=== PATIENT | male | born 1955 | race Caucasian/White ===

== ENCOUNTER → 2018-06-02 | Outpatient (CLI) | payer BC ==
--- NOTE | 2018-06-02 10:19 | RAD ---
Single frontal view pelvis Indication: PAIN IN BILAT HIP Comparison: None. Impression: L5-S1 fusion construct noted. No acute pelvic fracture identified. Evaluation for fracture is limited given the degree of osteopenia. If high clinical concern for acute fracture, correlation with MRI recommended given its greater sensitivity in the osteopenic patient. If the patient cannot tolerate MRI imaging or more urgent imaging is required, CT could be performed, however it is less sensitive in the osteopenic patient when compared to MRI. Mild bilateral hip osteoarthritis with joint space narrowing and minimal acetabular roof osteophyte formation. Electronically signed by: Pedro Woods MD 06/02/2018 10:18 AM [facility]
--- NOTE | 2018-06-02 10:20 | RAD ---
4 view left knee Indication: PAIN IN LEFT KNEE Comparison: None. Impression: Severe narrowing medial and patellofemoral compartments with near complete joint space loss and areas of cortical remodeling and subchondral sclerosis. Moderate narrowing lateral compartment. Moderate tricompartmental joint line osteophytes. Small knee effusion. No acute fracture. Electronically signed by: Pedro Woods MD 06/02/2018 10:18 AM [facility]
--- NOTE | 2018-06-02 10:21 | RAD ---
4 view right knee Indication: PAIN IN RIGHT KNEE Comparison: None. Impression: Impression: Severe narrowing medial and patellofemoral compartments with near complete joint space loss and areas of cortical remodeling and subchondral sclerosis. Moderate narrowing lateral compartment. Moderate tricompartmental joint line osteophytes. Small knee effusion. No acute fracture. Chondrocalcinosis of the menisci. Enthesophyte formation quadriceps tendon insertion. Electronically signed by: Pedro Woods MD 06/02/2018 10:20 AM [facility]
== END ==
LOC: RAD 09:22
PROVIDERS: ATTEND Orthopaedic Surgery
DX: M25.561 Pain in right knee (principal); M25.562 Pain in left knee; M16.0 Bilateral primary osteoarthritis of hip; M25.551 Pain in right hip; M25.552 Pain in left hip; Z98.1 Arthrodesis status

== ENCOUNTER → 2018-11-12 | Outpatient (CLI) | payer BC ==
--- NOTE | 2018-11-12 13:56 | RAD ---
EXAM DESCRIPTION: Chest,2 Views CLINICAL HISTORY: PRE OP COMPARISON: None TECHNIQUE: PA/lateral FINDINGS: There is no acute appearing cardiac or pulmonary abnormality. Heart size is prominent with normal pulmonary vascularity. No pleural effusion or pneumothorax. Lungs are clear with no consolidating infiltrate. Lateral view shows intact sternum and spurring in the mid to lower T-spine. IMPRESSION: No acute process is identified in the chest. Electronically signed by: Brian Martino MD 11/12/2018 1:54 PM CDT
== END ==
LOC: LAB.O 11:45
PROVIDERS: ATTEND Family Medicine
DX: Z01.818 Encounter for other preprocedural examination (principal)

== ENCOUNTER → 2019-02-09 | Outpatient (CLI) | payer BC | LOC: RESP 09:31 | PROVIDERS: ATTEND Orthopaedic Surgery | DX: Z01.818 Encounter for other preprocedural examination (principal) ==

== ENCOUNTER → 2019-02-25 | Day surgery (SDC) | payer BC ==
--- NOTE | 2019-01-02 09:41 | HP ---
CHIEF COMPLAINT: Right knee pain. HISTORY OF PRESENT ILLNESS: Mr. Mazariegos is a 63-year-old male with a history of severe knee pain. He has been scheduled to undergo total knee arthroplasty. He has pain now that seems to be at a level of about 10 at times. It is bilateral. He has difficulty with his daily activities because of the pain which is sharp in nature and prevents him from doing activities of daily living and pleasurable activities. Because of his failure of conservative measures, he has requested operative intervention. After discussing the risks, benefits and alternatives to that, he has given informed consent. PAST SURGICAL HISTORY: 1. Multiple back surgeries. 2. Nephrectomy. 3. Left knee arthroscopy. MEDICATIONS: 1. Amlodipine. 2. Hydrochlorothiazide. 3. Lisinopril. 4. Metoprolol. ALLERGIES: MORPHINE. CODE STATUS: Full code. IMMUNIZATIONS: Up to date. SOCIAL HISTORY: The patient does not drink, smoke or use any illicit drugs. FAMILY HISTORY: None pertinent to today's complaint. REVIEW OF SYSTEMS: Negative except as indicated in the History of Present Illness. PHYSICAL EXAMINATION: VITAL SIGNS: Blood pressure 133/81. Pulse 79. Height 6'. Weight 263 pounds. MENTAL STATUS: The patient is awake, alert, and is able to give a good history and participate in the physical. The patient is oriented to person, place and time. SKIN: Normal tone and turgor. HEENT: Normocephalic, atraumatic. Pupils equal, round and reactive. Mucosal membranes are moist. NECK: Normal range of motion. No thyromegaly, no lymphadenopathy. CHEST: Normal respiratory excursion. CARDIAC: Regular rate and rhythm. No murmurs, rubs or gallops. MUSCULOSKELETAL: The bilateral upper extremities show full active range of motion. He has intact sensation. There is no pain with range of motion of the upper extremities. Both upper extremities are warm and well perfused. There is no deformity. There is no significant crepitus. The left lower extremity shows full range of motion of the hip without significant discomfort. He has severe pain in the knee with crepitus throughout his range of motion. He has slight varus deformity to the knee. He has full 5/5 strength. He lacks about 5 degrees of extension today and flexion is to about 120 degrees. The right side shows no significant pain with range of motion of the hip. Sensation is intact in the extremity and it is warm and well perfused. There is a slight varus deformity. The knee lacks about 5 degrees of extension with flexion to about 115 degrees. There is no varus/valgus or anterior/posterior laxity. IMAGING: X-rays show severe arthritis. ASSESSMENT: 1. Osteoarthritis. PLAN: The plan at this point is for total knee arthroplasty. We have discussed the risks, benefits, and alternatives to that and the patient has given informed consent. #[id number] [facility]
--- NOTE | 2019-02-17 08:04 | HP ---
CHIEF COMPLAINT: Right knee pain. HISTORY OF PRESENT ILLNESS: Mr. Mazariegos is a 64-year-old male with a history of pain in the right knee. He describes the pain as being throbbing in nature and up to an 8 in intensity. It has been going on for at least 3 years. It is on a continual basis and he cannot identify any alleviating factors. Aggravating factors include sitting, standing, walking and range of motion. Associated symptoms including clicking and popping. He has not had previous surgery on this. He has tried anti-inflammatories, physical therapy and injections, and these have failed to give him relief. Because of his ongoing symptoms and disruption of his daily activities, he has requested operative intervention. After discussing the risks, benefits and alternatives to that, he has given informed consent. PAST SURGICAL HISTORY: 1. Lumbar surgery. 2. Kidney surgery. 3. Left knee surgery. MEDICATIONS: 1. NovoLog. 2. Lisinopril. PAIN CONTRACT: None. ALLERGIES: NO KNOWN DRUG ALLERGIES. CODE STATUS: Full code. IMMUNIZATIONS: Up to date. SOCIAL HISTORY: The patient does not drink or smoke, but does use smokeless tobacco. FAMILY HISTORY: None pertinent to today's complaint. REVIEW OF SYSTEMS: Negative except as indicated in the History of Present Illness. HEENT: The patient reports no symptoms. RESPIRATORY: The patient reports no symptoms. CARDIOVASCULAR: The patient reports no symptoms. GASTROINTESTINAL: The patient reports no symptoms GENITOURINARY: The patient reports no symptoms. MUSCULOSKELETAL: Negative except as noted in History of Present Illness. SKIN: The patient reports no symptoms. NEUROLOGIC: The patient reports no symptoms. PHYSICAL EXAMINATION: VITAL SIGNS: Blood pressure 112/72. Pulse 62. Height 6'. Weight 267 pounds. MENTAL STATUS: The patient is awake, alert, and is able to give a good history and participate in the physical. The patient is oriented to person, place and time. SKIN: Normal tone and turgor. HEENT: Normocephalic, atraumatic. Pupils equal, round and reactive. Mucosal membranes are moist. NECK: Normal range of motion. No thyromegaly, no lymphadenopathy. CHEST: Normal respiratory excursion. CARDIAC: Regular rate and rhythm. No murmurs, rubs or gallops. MUSCULOSKELETAL: The bilateral upper extremities show full active range of motion without pain. He has intact sensation in both extremities and they are warm and well perfused. There is no deformity or crepitus. He has 2+ reflexes that are equal bilaterally. Skin is intact. The left lower extremity shows full range of motion of the hip without pain. He has full extension of the knee and flexion is to about 120 degrees. There is crepitus and pain with range of motion and he has pain to palpation. There is no effusion. There is no varus/valgus or anterior/posterior laxity. The ankle and digits show full range of motion. Strength is 5/5. The right lower extremity shows full painless range of motion in the hip. He has intact sensation and it is warm and well perfused. He has no obvious signs of trauma. There is a slight varus deformity of the knee. The knee is very tender to palpation diffusely. He has severe crepitus with range of motion of the knee and severe crepitus with patellar mobilization. He lacks 5 degrees of extension and he has about 110 degrees of flexion today. There is negative anterior and posterior drawer. The ankle and digits show full painless range of motion. RADIOLOGY: My interpretation of the x-rays shows severe arthritis bilaterally. ASSESSMENT: 1. Arthritis. PLAN: The plan at this point is for total knee arthroplasty. We have discussed the risks, benefits, and alternatives to that and the patient has given informed consent. #[id number] [facility]
--- NOTE | 2019-02-23 11:52 | RAD ---
EXAM DESCRIPTION: Lumbar Spine 3 Views CLINICAL HISTORY: 64 years Male, PRE OP TKA SPINAL COMPARISON: None available. FINDINGS: Posterior spinal fixation hardware is noted traversing L5 and S1 vertebral bodies. Minimal anterolisthesis of L4 over L5. The vertebral body heights are well-maintained with no acute compression deformity. The intervertebral disc spaces are well preserved. No evidence of spondylolysis or spondylolisthesis. The visualized prevertebral and paravertebral soft tissues appear grossly unremarkable. IMPRESSION: Posterior spinal fixation hardware is noted traversing L5 and S1 vertebral bodies. Minimal anterolisthesis of L4 over L5. Electronically signed by: Gracy Singh MD 02/23/2019 11:50 AM CDT
[~2019-02-25] MED LIST: LACTATED RINGERS 0 ML ONE; SODIUM CHL 0.9% 100ML MINI-BAG 0 ML IVPB ONE; SODIUM CHLORIDE 0.9% 100ML 0 ML IVPB ONE; SODIUM CHLORIDE 0.9% 250ML 0 ML ONE; TRANEXAMIC ACID 1,000 MG/10 ML VIAL ONE; VANCOMYCIN HCL INJ 1,000 MG VIAL IVPB ONE; ceFAZolin SODIUM 1 GM VIAL ONE
== END ==
LOC: AMB 05:39
PROVIDERS: ATTEND Orthopaedic Surgery
DX: M17.11 Unilateral primary osteoarthritis, right knee (principal); F17.290 Nicotine dependence, other tobacco product, uncomplicated; Z98.1 Arthrodesis status; Z88.5 Allergy status to narcotic agent; Z90.5 Acquired absence of kidney; Z79.4 Long term (current) use of insulin; Z79.899 Other long term (current) drug therapy; Z53.9 Procedure and treatment not carried out, unspecified reason